=== PATIENT | male | born 1990 | race Caucasian/White ===

== ENCOUNTER 2019-05-08 10:25 | Emergency (ER) | payer OTHER ==
[2019-05-08 10:37] VITALS: BP 137/77
[2019-05-08] MEDS ORDERED: AMOX500C PO (10:42)
--- NOTE | 2019-05-08 10:42 | PHYS DOC ---
Adult General Chief Complaint Chief Complaint: SORE THROAT HPI HPI Patient is a 28-year-old male who presents with complaint of sore throat, headache and chills that started yesterday. Patient doesn't know whether or not his been running a fever. He has been taking some [id number] medication for symptom relief. He states that his mom look down his throat this morning and saw some kind of a pocket on this tonsils. He denies any chest pain or shortness breath.[] Review of Systems Review of Systems Constitutional: Positive chills [] HENT: Positive sore throat [] Respiratory: Denies cough or shortness of breath [] Cardiovascular: No additional information not addressed in HPI [] Integument: Denies rash or skin lesions [] Physical Exam Physical Exam Constitutional: Well developed, well nourished, no acute distress, non-toxic appearance. [] HENT: Normocephalic, atraumatic, bilateral external ears normal, there is tonsillar swelling, erythema with exudates bilaterally. [] Neck: Normal range of motion, no tenderness, supple, with anterior cervical lymphadenopathy. [] Cardiovascular: Regular rate and rhythm[] Lungs & Thorax: Bilateral breath sounds clear to auscultation [] Skin: Warm, dry, no erythema, no rash. [] EKG EKG [] Radiology/Procedures Radiology/Procedures [] Course & Med Decision Making Course & Med Decision Making Pertinent Labs and Imaging studies reviewed. (See chart for details) [] Dragon Disclaimer Dragon Disclaimer This electronic medical record was generated, in whole or in part, using a voice recognition dictation system. Departure Departure: Impression: Primary Impression: Tonsillitis Disposition: 01 HOME, SELF-CARE Condition: STABLE Patient Instructions: Tonsillitis Scripts Amoxicillin (AMOXICILLIN) 500 Mg Capsule 2 CAP PO BID for infection, #40 CAP Prov: DEBBY QUINONES Jr. DO 05/08/19 DEBBY QUINONES Jr. DO May 08, 2019 10:42
== END 2019-05-08 10:43 | disposition home or self-care (01) ==
LOC: ER 10:25
DX: J03.90 Acute tonsillitis, unspecified (principal)
CPT/HCPCS: 99283